=== PATIENT | male | born 1990 | race Asian ===

== ENCOUNTER 2020-04-28 10:16 | Emergency (ER) | payer OTHER ==
--- NOTE | 2020-04-28 12:06 | ER ---
Nurse's Notes [facility] Name: Omar Currie Age: 30 yrs Sex: Male : 1990 Arrival Date: 04/28/2020 Time: 10:19 Bed 20 Private MD: Diagnosis: Hemorrhoid Presentation: 04/28 10:40 Chief complaint: Patient states: hemorrhoids X 3 days, can see it and it's causing a iw lot of pain, has never had them before. Coronavirus screen: At this time, the client does not indicate any symptoms associated with coronavirus-19. Ebola Screen: Patient negative for fever greater than or equal to 101.5 degrees Fahrenheit, and additional compatible Ebola Virus Disease symptoms Patient denies exposure to infectious person. Patient denies travel to an Ebola-affected area in the 21 days before illness onset. No symptoms or risks identified at this time. Initial Sepsis Screen: Does the patient meet any 2 criteria? No. Patient's initial sepsis screen is negative. Does the patient have a suspected source of infection? No. Patient's initial sepsis screen is negative. Risk Assessment: Do you want to hurt yourself or someone else? Patient reports no desire to harm self or others. Onset of symptoms was April 25, 2020. 10:40 Method Of Arrival: Ambulatory iw 10:40 Acuity: LILY 4 iw Historical: - Allergies: 10:42 No Known Allergies; iw - Home Meds: 10:42 None [Active]; iw - PMHx: 10:42 None; iw - PSHx: 10:42 None; iw - Immunization history:: Adult Immunizations not up to date. - Social history:: Smoking status: Patient denies any tobacco usage or history of. Screenin:49 Abuse screen: Denies threats or abuse. Nutritional screening: No deficits noted. em Tuberculosis screening: No symptoms or risk factors identified. Fall Risk None identified. Assessment: 12:40 General: Appears in no apparent distress. uncomfortable, Behavior is calm, cooperative, em appropriate for age, Denies fever. Pain: Complains of pain in buttocks. Neuro: Level of Consciousness is awake, alert, obeys commands, Oriented to person, place, time, situation, Appropriate for age. Cardiovascular: Capillary refill < 3 seconds Patient's skin is warm and dry. Respiratory: Airway is patent Respiratory effort is even, unlabored, Respiratory pattern is regular, symmetrical. Derm: Skin is intact, is healthy with good turgor, Skin is pink, warm \T\ dry. Musculoskeletal: Capillary refill < 3 seconds, Range of motion: intact in all extremities. Vital Signs: 10:40 BP 111 / 71; Pulse 77; Resp 16; Temp 97.9; Pulse Ox 100% on R/A; Weight 83 kg; Height 5 iw ft. 6 in. (167.64 cm); 10:40 Body Mass Index 29.53 (83.00 kg, 167.64 cm) iw ED Course: 10:19 Patient arrived in ED. rg4 10:42 Triage completed. iw 10:43 Arm band placed on. iw 11:16 Pascual Qureshi RN is Primary Nurse. em 11:18 Jaylon Hawkins NP is PHCP. pm1 11:18 Hugh Smart MD is Attending Physician. pm1 12:30 Patient has correct armband on for positive identification. Bed in low position. Call em light in reach. Side rails up X2. 12:50 No provider procedures requiring assistance completed. Patient did not have IV access em during this emergency room visit. Administered Medications: 12:31 Drug: TORadol 60 mg Route: IM; Site: left gluteus; em 12:51 Follow up: Response: No adverse reaction; Marked relief of symptoms; Pain is decreased em Outcome: 12:06 Discharge ordered by MD. pm1 12:50 Discharged to home ambulatory. em 12:50 Condition: stable 12:50 Discharge instructions given to patient, Instructed on discharge instructions, follow up and referral plans. medication usage, Demonstrated understanding of instructions, follow-up care, medications, Prescriptions given X 3. 12:51 Patient left the ED. em Signatures: Pascual Qureshi RN RN em Torie Shabazz RN RN iw Jaylon Hawkins NP [employer] pm1 Neha Lay rg4 Corrections: (The following items were deleted from the chart) 10:43 10:40 BP 152 / 100; Pulse 77bpm; Resp 16bpm; Pulse Ox 100% RA; Temp 97.9F; 83 kg; iw Height 5 ft. 6 in.; BMI: 29.5; iw
--- NOTE | 2020-04-28 12:06 | EDPHYS ---
Physician Documentation [facility] Name: Omar Currie Age: 30 yrs Sex: Male : 1990 Arrival Date: 04/28/2020 Time: 10:19 Bed 20 Private MD: ED Physician Hugh Smart HPI: 04/28 12:05 This 30 yrs old Male presents to ER via Ambulatory with complaints of Hemorrhoid pm1 Pain. 12:05 The patient presents to the emergency department with pain in the rectal area. pm1 12:05 Onset: The symptoms/episode began/occurred 3 day(s) ago. Context: the patient has no pm1 known special context relating to the rectal area complaint(s). Modifying factors: The symptoms are alleviated by nothing, The symptoms are aggravated by bowel movement, sitting position. Associate signs and symptoms: Pertinent negatives: abdominal pain, fever, lower GI bleeding. The patient has not experienced similar symptoms in the past. The patient has not recently seen a physician. Historical: - Allergies: 10:42 No Known Allergies; iw - Home Meds: 10:42 None [Active]; iw - PMHx: 10:42 None; iw - PSHx: 10:42 None; iw - Immunization history:: Adult Immunizations not up to date. - Social history:: Smoking status: Patient denies any tobacco usage or history of. ROS: 12:05 Constitutional: Negative for fever, chills, and weight loss. pm1 12:05 Back: Negative for injury and pain, MS/Extremity: Negative for injury and deformity, Skin: Negative for injury, rash, and discoloration. 12:05 Neuro: Negative for headache, weakness, numbness, tingling, and seizure. 12:05 Abdomen/GI: Positive for rectal pain from hemorrhoid , Negative for abdominal pain, nausea, vomiting, and diarrhea. Exam: 12:05 Constitutional: This is a well developed, well nourished patient who is awake, alert, pm1 and in no acute distress. Head/Face: Normocephalic, atraumatic. 12:05 Back: No spinal tenderness. No costovertebral tenderness. Full range of motion. Skin: Warm, dry with normal turgor. Normal color with no rashes, no lesions, and no evidence of cellulitis. MS/ Extremity: Pulses equal, no cyanosis. Neurovascular intact. Full, normal range of motion. 12:05 Cardiovascular: Rate: normal, Rhythm: regular, Pulses: no pulse deficits are appreciated, Edema: is not appreciated. 12:05 Respiratory: Exam negative for acute changes, respiratory distress, shortness of breath. 12:05 Abdomen/GI: Inspection: abdomen appears normal, Palpation: abdomen is soft and non-tender, in all quadrants. 12:05 Neuro: Exam negative for acute changes, Orientation: is normal, Mentation: is normal, Motor: is normal, moves all fours. 12:05 Abdomen/GI: Rectal exam: rectal tone normal, hemorrhoid(s), external, with pain, pm1 without bleeding, without inflammation, without thrombosis, 3 o'clock, [facility]. Vital Signs: 10:40 BP 111 / 71; Pulse 77; Resp 16; Temp 97.9; Pulse Ox 100% on R/A; Weight 83 kg; Height 5 iw ft. 6 in. (167.64 cm); 10:40 Body Mass Index 29.53 (83.00 kg, 167.64 cm) iw MDM: 11:22 Patient medically screened. pm1 12:05 Data reviewed: vital signs. pm1 12:05 Counseling: I had a detailed discussion with the patient and/or guardian regarding: the pm1 historical points, exam findings, and any diagnostic results supporting the discharge/admit diagnosis, the need for outpatient follow up, a general surgeon, to return to the emergency department if symptoms worsen or persist or if there are any questions or concerns that arise at home. Administered Medications: 12:31 Drug: TORadol 60 mg Route: IM; Site: left gluteus; em 12:51 Follow up: Response: No adverse reaction; Marked relief of symptoms; Pain is decreased em Disposition: 14:10 Co-signature as Attending Physician, Hugh Smart MD. rn Disposition: 04/28/20 12:06 Discharged to Home. Impression: Hemorrhoid. - Condition is Stable. - Discharge Instructions: Hemorrhoids. - Prescriptions for Colace 100 mg Oral Tablet - take 1 tablet by ORAL route every 12 hours; 14 tablet. Diclofenac Sodium 75 mg Oral Tablet, Delayed Release (E.C.) - take 1 tablet by ORAL route 2 times per day As needed; 30 tablet. Anusol- HC 25 mg Rectal Suppository - insert 1 suppository by RECTAL route every 12 hours As needed; 20 suppository. - Medication Reconciliation Form, Thank You Letter, Antibiotic Education, Prescription Opioid Use form. - Follow up: Emergency Department; When: As needed; Reason: Worsening of condition. Follow up: Private Physician; When: 2 - 3 days; Reason: Recheck today's complaints, Continuance of care, Re-evaluation by your physician. - Problem is new. - Symptoms have improved. Signatures: Pascual Qureshi RN RN em Williams, Irene, RN RN iw Nieto, Roman, MD MD rn Marinas, Patrick, [employer] pm1 Corrections: (The following items were deleted from the chart) 12:51 12:06 04/28/2020 12:06 Discharged to Home. Impression: Hemorrhoid. Condition is Stable. em Forms are Medication Reconciliation Form, Thank You Letter, Antibiotic Education, Prescription Opioid Use. Follow up: Emergency Department; When: As needed; Reason: Worsening of condition. Follow up: Private Physician; When: 2 - 3 days; Reason: Recheck today's complaints, Continuance of care, Re-evaluation by your physician. Problem is new. Symptoms have improved. pm1
[2020-04-28] MEDS ORDERED: KETOROLAC 30 MG/ML INJ ONE (12:42)
[2020-04-28 12:55] VITALS: BP 111/71; TEMP 97.9; O2SAT 100
== END 2020-04-28 12:51 | disposition home or self-care (01) ==
LOC: ER 10:16
DX: K64.9 Unspecified hemorrhoids (principal)
CPT/HCPCS: 96372; 99283